=== PATIENT | male | born 1970 | race Caucasian/White ===

== ENCOUNTER → 2018-03-01 | Outpatient (CLI) | payer BC ==
--- NOTE | 2018-03-01 16:55 | CONS ---
CONSULTATION DATE OF SERVICE: 03/01/2018 47-year-old gentleman who has been evaluated in the sleep center for possible obstructive sleep apnea-hypopnea syndrome. HISTORY OF PRESENT ILLNESS/SLEEP WAKE EVALUATION: SLEEP SCHEDULE: Patient usual sleep schedule on working days from 10 p.m. until 5, 5:30 a.m. and on weekends from around 11:00 p.m. until 8 or 9:00 a.m. FALLING ASLEEP: No problems with falling asleep, although she has TV set in bedroom. DURING SLEEP: He sleeps in different positions with his with loud snoring according to her. Positive history of grinding teeth. DURING THE DAY/SLEEP WAKE EVALUATION: The patient usually does not take any naps. [place] Sleepiness Scale is 5. PAST MEDICAL HISTORY: Positive for hypertension and grinding teeth. History of grinding teeth in the part of the sleep. Past medical history include hypertension. PAST SURGICAL HISTORY: Tonsillectomy. MEDICATIONS: Lisinopril. FAMILY HISTORY: Heart problems. REVIEW OF SYSTEMS: Snoring, sometimes feeling tiredness. SOCIAL HISTORY: Positive for smoking up to 1/2 pack a day for 37 years. Subsequently, it is more than 50 pack years. Alcohol consumption rarely. PHYSICAL EXAM: gentleman without distress. BP 138/93, HR 80, RR 16, height 5 feet 8 inches, weight 244, BMI 37, temperature 98.6, oxygen saturation on room air 95%. Oropharynx extremely low position of soft palate. Neck is 17 inches in circumference. ABDOMEN: Obese. Neck Supple, no JVD. Thyroid is not palpable. LUNGS Clear to percussion and to auscultation. Good air exchange. No wheezing or rhonchi. HEART S1, S2 regular. No murmurs, gallops, or rubs. ABDOMEN: Obese. Soft and nontender. Bowel sounds are present. No organomegaly appreciated. EXTREMITIES No clubbing or cyanosis. REFORMATORY ATTENDANT Awake, alert, and oriented X3. Cranial nerves 2 to 7 intact. There is no fasciculation or atrophy. noted. No focal deficits observed. IMPRESSION: 1. Snoring, low position of soft palate wide neck, obstructive sleep apnea-hypopnea syndrome. 2. Hypertension. 3. Obesity, body mass index 37. 4. History of grinding teeth. 5. Status post tonsillectomy. PLAN: 1. Home sleep apnea test for evaluation of patient breathing during the sleep. 2. Polysomnography for evaluation of patient's breathing during sleep. 3. CPAP/BiPAP titration if sleep study confirms obstructive sleep apnea-hypopnea syndrome. 4. Preferable position during sleep on the side. 5. No driving if patient feels any sleepiness. 6. I will see patient for follow up visit to explain results of testing and following plan. Thank you very much for referring the patient for consultation. Jak Narayanan MD, PhD, FAASM Diplomat of [employer] [employer] [employer] Instructor of [facility] [place] MMODL / IJN: [id number] /
== END | disposition home or self-care (01) ==
LOC: SLEEP 15:38
PROVIDERS: ATTEND Internal Medicine
DX: G47.33 Obstructive sleep apnea (adult) (pediatric) (principal); M27.8 Other specified diseases of jaws; I10 Essential (primary) hypertension; E66.9 Obesity, unspecified; Z68.37 Body mass index [BMI] 37.0-37.9, adult; Z90.89 Acquired absence of other organs; Z79.899 Other long term (current) drug therapy; Z87.891 Personal history of nicotine dependence
CPT/HCPCS: 99211